=== PATIENT | female | born 1990 ===

== ENCOUNTER 2017-06-18 11:49 | Inpatient (IN) | payer OTHER ==
[2017-06-18] MEDS ORDERED: cefTRIAXone 2 GM in Sodium Chloride 0.9% 100 ML IVPB ONE (12:51)
[2017-06-18] MEDS ORDERED: Lactated Ringer's 1,000 ML IV ONE (12:52)
[2017-06-18 13:46] LABS: BASO % 0.1 % (0.0-2.0); EOS % 0.1 % (0.0-4.0); HEMATOCRIT 30.7 % (34.0-47.0); LYMPH # 0.7 K/uL (1.0-4.3); LYMPH % 5.5 % (20.0-40.0); MEAN CELL VOLUME 87.1 fL (81.0-99.0); MEAN CORPUSCULAR HEMOGLOBIN 29.2 pg (27.0-31.0); MEAN CORPUSCULAR HGB CONC 33.6 g/dL (33.0-37.0); MEAN PLATELET VOLUME 10.2 fL (7.2-11.7); MONO # 0.8 K/uL (0.0-0.8); MONO % 6.8 % (0.0-10.0); PLATELET COUNT 185 K/uL (130-400); RED CELL DISTRIBUTION WIDTH 13.4 % (11.5-14.5); WHITE BLOOD COUNT 12.1 K/uL (4.8-10.8)
[2017-06-18 13:55] LABS: CHLORIDE 99 mmol/L (98-107); POTASSIUM 3.5 mmol/L (3.6-5.2); SODIUM 133 mmol/L (132-148)
[2017-06-18 13:57] LABS: AST/SGOT 13 U/L (14-36); BILIRUBIN,TOTAL 0.5 mg/dL (0.2-1.3); CARBON DIOXIDE 22 mmol/L (22-30); GFR AFRICAN-AMERICAN > 60
[2017-06-18 13:58] LABS: ALB/GLOB RATIO 1.1 (1.0-2.1); ALKALINE PHOSPHATASE 71 U/L (38-126); ALT/SGPT 22 U/L (9-52); BLOOD UREA NITROGEN 8 mg/dL (7-17); CALCIUM 8.5 mg/dl (8.6-10.4); GLUCOSE,RANDOM 69 mg/dL (65-105); RBC URINE 5 /hpf (0-3); TOTAL PROTEIN 6.9 g/dL (6.3-8.3); URINE BACTERIA MOD (<OCC); URINE BILIRUBIN NEGATIVE (NEGATIVE); URINE BLOOD NEGATIVE (NEGATIVE); URINE COLOR Yellow (YELLOW); URINE GLUCOSE (UA) NORMAL (Normal); URINE KETONE NEGATIVE (NEGATIVE); URINE LEUKOCYTE ESTERASE 2+ Leu/uL (Negative); URINE PROTEIN NEGATIVE (NEGATIVE); URINE UROBILINOGEN NORMAL mg/dL (0.2-1.0); WBC URINE 57 /hpf (0-5)
[2017-06-18 14:06] LABS: NEUTROPHIL 89 % (50-75); TOTAL CELLS COUNTED 100
[2017-06-18 14:07] LABS: LARGE PLATELETS PRESENT
[2017-06-18] MEDS: Potassium Chloride 20 mEq ER Tab PO SCH (15:34)
[2017-06-18] MEDS: Lactated Ringer's 1,000 ML IV SCH (18:00)
[2017-06-19] MEDS ORDERED: cefTRIAXone IV 1 gm in Dextros 50 ML IVPB ONE (09:25)
[2017-06-19] MEDS: Potassium Chloride 20 mEq ER Tab PO SCH (09:43)
[2017-06-19] MEDS: Lactated Ringer's 1,000 ML IV SCH ×2 (09:45→16:37)
[2017-06-19] MEDS ORDERED: Oxytocin 20 units in LR 0 ML IV ONE (12:33)
--- NOTE | 2017-06-19 16:23 | OBPN ---
Datetime: 06/19/2017 09:30 IP Progress Note Comment: Patient seen and examined at bedside. Per nursing no acute events overnigh t. Patient is doing well, back pain and abdominal cramping improving. Ambulating and tolerating diet. Denies fevers, chill, nausea/vomiting, headaches, dizziness, cp, palpitations, sob, urinary symptoms . Endorses +FM, denies CTX, LOF, VB. VS: BP 92/56 HR 110 Temp 99.1 Gen: AAOx3 CV: RRR Lungs: CTA B/L Abd: Soft, gravid, no fundal tenderness, no suprapubic tenderness Back: L CVA tenderness Ext: No clubbing, cyanosis, edema; no calf tenderness Labs: 12.1>10.3/30.7<185 133/3.5/99/22/8/0.6<69 UA: +leuk esterase, WBC 57, moderate bacteria O positive A/P: 27 yo at 20w6d presents with abdominal cramping and back pain with fever, possible py leonephritis HD#2 1. Stable, afebrile (last fever 102.0 @ 19:50) 2. Continue Rochepin 1 gm daily 3. Hypokalemia - Continue potassium po 4. IV hydration 5. F/U urine cx, blood cx 6. Will order influenza 7. Tylenol prn fever 8. Continue to monitor 9. Plan d/w attending Nayely Dennis DO PGY-1 Attending Attestation 1600 hours: patient seen and evaluated. I agree with the Resident's docume ntaiton of events as described above. Temp = 100.4 F @ 1515 hours Patient received in LDR#1, in the bathroom Reports left low back pain is still present, pain scale 8/10;, worsened when she moves around, not too bad when she sits still. Lower abdominal cramping is improving. Hungry. (+) FM. Patient now also discloses h/o renal calculi: first diagnosed 2011, with recurrences, bilaterally. Has had stent placements over this time; last placement 2014, [facility] [place]. Subsequent stent removal incompl ete: patient describes what apears to be a possible "breaking off" of a portion of a stent. States w as told "hopefully it will pass". All else as described above. Assessment: HD#2 27 y.o. [id number], 20w 6d, on rocephin for prsumed pyelonephritis; and newly disclose d h/o renal calculi. Tem spike as above: D/W patient, blood cultures x 2, CXR. Urine culture noted f or GN rods (lactobacillus). Hypokalemia - repleted. Patient expressed an understanding and agrees. Cl inically stable. Plan: 1) Blood cultures x 2 2) CXR - with abdominal shield 3) CBC, BMP 4) Continue rocephin 5) Renal ultrasound in AM 6) Tylenol, PRN 7) FHR auscultation, QD 8) Continue present management
[2017-06-19 16:33] LABS: BASO % 0.2 % (0.0-2.0); EOS # 0.1 K/uL (0.0-0.7); EOS % 1.1 % (0.0-4.0); HEMATOCRIT 28.7 % (34.0-47.0); LYMPH # 0.9 K/uL (1.0-4.3); LYMPH % 9.5 % (20.0-40.0); MEAN CELL VOLUME 86.7 fL (81.0-99.0); MEAN CORPUSCULAR HEMOGLOBIN 29.4 pg (27.0-31.0); MEAN PLATELET VOLUME 9.9 fL (7.2-11.7); MONO % 10.6 % (0.0-10.0); PLATELET COUNT 166 K/uL (130-400); RED CELL DISTRIBUTION WIDTH 13.3 % (11.5-14.5); WHITE BLOOD COUNT 9.3 K/uL (4.8-10.8)
[2017-06-19 16:44] LABS: CHLORIDE 102 mmol/L (98-107)
[2017-06-19 16:45] LABS: POTASSIUM 4.1 mmol/L (3.6-5.2); SODIUM 133 mmol/L (132-148)
[2017-06-19 16:47] LABS: GFR AFRICAN-AMERICAN > 60
[2017-06-19 16:48] LABS: BLOOD UREA NITROGEN 7 mg/dL (7-17); CALCIUM 8.6 mg/dl (8.6-10.4); CARBON DIOXIDE 23 mmol/L (22-30); GLUCOSE,RANDOM 75 mg/dL (65-105)
--- NOTE | 2017-06-19 17:13 | RAD ---
PROCEDURE: CHEST RADIOGRAPH, 1 VIEW HISTORY: Fevers COMPARISON: 06/19/2017 FINDINGS: LUNGS: Mild diffuse increased interstitial lung markings suggestive for mild venous congestion. PLEURA: No pneumothorax or pleural fluid seen. CARDIOVASCULAR: Normal. OSSEOUS STRUCTURES: No significant abnormalities. VISUALIZED UPPER ABDOMEN: Normal. OTHER FINDINGS: None. IMPRESSION: Mild diffuse increased interstitial lung markings suggestive for mild venous congestion.
[2017-06-19 17:53] LABS: NEUTROPHIL 84 % (50-75); TOTAL CELLS COUNTED 100
[2017-06-19] MEDS ORDERED: Lactated Ringer's 1,000 ML IV SCH (18:45)
[2017-06-20 08:20] LABS: CHLORIDE 102 mmol/L (98-107)
[2017-06-20 08:21] LABS: POTASSIUM 3.9 mmol/L (3.6-5.2); SODIUM 135 mmol/L (132-148)
[2017-06-20 08:23] LABS: ALB/GLOB RATIO 0.9 (1.0-2.1); ALKALINE PHOSPHATASE 61 U/L (38-126); AST/SGOT 11 U/L (14-36); BILIRUBIN,TOTAL 0.3 mg/dL (0.2-1.3); CARBON DIOXIDE 23 mmol/L (22-30); GFR AFRICAN-AMERICAN > 60
[2017-06-20 08:24] LABS: ALT/SGPT 21 U/L (9-52); BLOOD UREA NITROGEN 8 mg/dL (7-17); CALCIUM 8.4 mg/dl (8.6-10.4); GLUCOSE,RANDOM 66 mg/dL (65-105)
[2017-06-20 08:32] VITALS: RESP 18
[2017-06-20 08:34] LABS: BASO % 0.4 % (0.0-2.0); EOS # 0.2 K/uL (0.0-0.7); EOS % 2.9 % (0.0-4.0); HEMATOCRIT 27.5 % (34.0-47.0); LYMPH # 0.8 K/uL (1.0-4.3); LYMPH % 11.7 % (20.0-40.0); MEAN CELL VOLUME 86.9 fL (81.0-99.0); MEAN CORPUSCULAR HEMOGLOBIN 29.9 pg (27.0-31.0); MEAN CORPUSCULAR HGB CONC 34.4 g/dL (33.0-37.0); MEAN PLATELET VOLUME 9.8 fL (7.2-11.7); MONO # 0.8 K/uL (0.0-0.8); NRBC % 0.1 % (0.0-2.0); RED CELL DISTRIBUTION WIDTH 13.6 % (11.5-14.5); WHITE BLOOD COUNT 6.5 K/uL (4.8-10.8)
[2017-06-20] MEDS ORDERED: cefTRIAXone IV 1 gm in Dextros 50 ML IVPB ONE (09:10)
[2017-06-20] MEDS: Potassium Chloride 20 mEq ER Tab PO SCH (09:11)
--- NOTE | 2017-06-20 10:06 | US ---
Renal ultrasound History: Renal calculi. Comparison: None available. Technique: Real-time sonography was performed through the kidneys. Findings: Right kidney: 9.5 x 5.2 x 5.9 centimeters. Mild increased echogenicity of the renal parenchymal cortex suggestive for mild medical renal disease. Mild hydronephrosis of the right renal collecting system. 4 x 3 x 5 millimeter lower pole echogenic calculus noted within the right kidney. Visualized aorta is preserved. Left Kidney: 12.2 x 6.2 x 5.7 centimeters. Mild increased echogenicity of the renal parenchymal cortex suggestive for medical renal disease. Mild fullness versus mild hydronephrosis of the left renal collecting system. No discrete calculus identified. Somewhat under distended but otherwise grossly preserved urinary bladder. Impression: Mild hydronephrosis of the right kidney with an associated 5 millimeter calculus in the lower pole of the right kidney. Mild fullness versus mild hydronephrosis of the left renal collecting system. Mild increased echogenicity of the bilateral renal parenchymal cortices suggestive for medical renal disease.
[2017-06-20 16:07] VITALS: BP 92/56; O2SAT 99
[2017-06-20 21:25] VITALS: PULSE 92; TEMP 97.8
== END 2017-06-20 17:23 | disposition left against medical advice (07) | DRG 886 ==
LOC: C.ER 11:49 → C.EROB 11:49 → C.4D 12:53 → C.4M 06-20
PROVIDERS: ADMIT Obstetrics & Gynecology; ATTEND Obstetrics & Gynecology
DX: O23.02 Infections of kidney in pregnancy, second trimester (principal); E87.6 Hypokalemia; O99.282 Endocrine, nutritional and metabolic diseases complicating pregnancy, second trimester; Z3A.20 20 weeks gestation of pregnancy; Z87.442 Personal history of urinary calculi